=== PATIENT | female | born 1990 | race Caucasian/White ===

== ENCOUNTER 2022-12-10 10:46 | Emergency (ER) | payer OTHER | END 2022-12-10 11:49 | disposition home or self-care (01) | LOC: ERS 10:46 | DX: K08.89 Other specified disorders of teeth and supporting structures (principal); K04.7 Periapical abscess without sinus; I10 Essential (primary) hypertension; F17.210 Nicotine dependence, cigarettes, uncomplicated | CPT/HCPCS: 99282 ==

== ENCOUNTER 2023-02-17 13:53 | Emergency (ER) | payer OTHER ==
[2023-02-17] MEDS ORDERED: Dexamethasone 4 MG TAB ONE (14:54)
== END 2023-02-17 15:36 | disposition home or self-care (01) ==
LOC: ERS 13:53
DX: J06.9 Acute upper respiratory infection, unspecified (principal); I10 Essential (primary) hypertension; F17.210 Nicotine dependence, cigarettes, uncomplicated
CPT/HCPCS: 71046; J8540

== ENCOUNTER 2023-05-11 13:11 | Emergency (ER) | payer OTHER | END 2023-05-11 15:24 | disposition home or self-care (01) | LOC: ERS 13:11 | DX: I10 Essential (primary) hypertension (principal); F17.210 Nicotine dependence, cigarettes, uncomplicated | CPT/HCPCS: 99282 ==

== ENCOUNTER 2024-03-02 09:27 | Emergency (ER) | payer OTHER, SELFPAY ==
[2024-03-02] MEDS ORDERED: Fluorescein Opthalmic Strip ONE (09:36)
[2024-03-02] MEDS ORDERED: Proparacaine 0.5% Opth 15 ML BOT ONE (09:36)
== END 2024-03-02 10:11 | disposition home or self-care (01) ==
LOC: ERS 09:27
DX: H57.8A2 Foreign body sensation, left eye (principal); H10.9 Unspecified conjunctivitis; I10 Essential (primary) hypertension; F17.210 Nicotine dependence, cigarettes, uncomplicated
CPT/HCPCS: 99283

== ENCOUNTER 2025-01-14 18:02 | Emergency (ER) | payer MEDICAID | END 2025-01-14 18:56 | disposition home or self-care (01) | LOC: ERS 18:02 | DX: R05.9 Cough, unspecified (principal); M62.830 Muscle spasm of back; I10 Essential (primary) hypertension; F17.210 Nicotine dependence, cigarettes, uncomplicated | CPT/HCPCS: 99284 ==